=== PATIENT | female | born 1950 | race Caucasian/White ===

== ENCOUNTER 2020-09-03 07:07 | Day surgery (SDC) | payer MEDICARE, OTHER, SELFPAY ==
[2020-08-30 09:39] VITALS: BMI 18.6
--- NOTE | 2020-09-03 | PATH_ITS ---
[facility] Accession Number: [id number] . 01 Material submitted: . cervix - CERVICAL LEEP CONE BIOPSY . 01 Clinical history: . STITCH AT 12 O'CLOCK . 02 Diagnosis: Cervical LEEP Cone Biopsy: Detached fragments of atypical squamous mucosa in the 6-12 o'clock region, favor involvement by low grade squamous intraepithelial lesion / CATRACHITA-1. The specimen consists predominantly of fibromuscular tissue with an absent/eroded mucosal surface. Patchy atypical squamous and metaplastic squamous mucosa with tangential orientation Insufficient atypical tissue volume for further characterization. Extensive, obscuring electrocautery artifact present at margins. Changes consistent with previous instrumentation are present. No invasive tumor identified. Negative for p16 block immunostaining. [facility] 09/09/2020 1521 Local . 02 Comment: Additional levels through block A1 are non-contributory. . 02 Electronically signed: . Dominique Richard MD, Pathologist NPI- [id number] . 01 Gross description: . The specimen is received in formalin, labeled LEEP cone biopsy and consists of a 1.0 x 0.8 x 0.5 cm irregular portion of tnoey ectocervix with a suture designated 12 o'clock. The endocervical margin is inked blue. The ectocervical margin is inked black. The specimen is serially sectioned and entirely submitted. . A1: 12-6 o'clock. A2: 6-12 o'clock (specimen fragmented upon sectioning). ([id number]) /V 09/05/2020 0920 Local . 02 Microscopic: . An immunohistochemical stain for p16 is performed on block A2 to evaluate for block reactivity and is negative for block immunostaining. The control stained with appropriate reactivity. . The absence of p16 block immunostaining mitigates against the presence of high risk HPV DNA in this biopsy. . . * This test was developed and its performance characteristics determined by [facility]. It has not been cleared or approved by the U.S. Food and Drug Administration. The FDA has determined that such clearance or approval is not necessary. This test is used for clinical purposes. It should not be regarded as investigational or for research. . 02 Pathologist provided ICD-10: N87.0 . 02 CPT . 780756, [id number] Performed at: 01 [facility] Cytology [address] [id number] MD Thomas Lou MD Phone: [phone] Performed at: 02 [facility] [address] [place] [id number] MD Baylee Jones MD Phone: [phone]
[2020-09-03 07:44] LABS: COVID19 -Nasal RAPID Negative (Negative)
[2020-09-03 08:08] VITALS: BP 162/91; PULSE 78; RESP 16; TEMP 35.9; O2SAT 99; BMI 18.6
[2020-09-03 08:17] VITALS: BMI 18.6
[2020-09-03 08:19] VITALS: BMI 18.6
--- NOTE | 2020-09-03 08:26 | SUR.OPER ---
Lithotomy on padded OR bed, head on pillow, arms secured on padded arm boards at <90 degrees abduction. Legs secured in padded yellow fins stirrups.
--- NOTE | 2020-09-03 08:31 | PM.HP.1 ---
History of Present Illness History of Present Illness Date Patient Seen: 09/03/20 Time Patient Seen: 08:31 Chief complaint: SDC Narrative: Patient is a 69-year-old 2 para 2 with CATRACHITA 2 of the cervix. She presents for a LEEP cone biopsy of the cervix. Patient History Medical History (Updated 08/15/20 @ 20:40 by Barbara Domingo MD) Abnormal Pap smear of cervix Chicken pox (~1956) Human papilloma virus (~2011) Hyperthyroidism (~1973) Measles Osteoporosis Problem of right ear Vision disorder Surgical History (Updated 04/25/20 @ 08:49 by [employer]) Anesthesia History of colposcopy (~2011) History of thyroidectomy (~1974) Family & Social History Family History Father Diabetes mellitus Stroke TBI (traumatic brain injury) Mother Hypertension Hyperlipidemia Brother History of thyroid surgery Sister History of thyroid surgery Grandmother Dementia Social History: household members family Tobacco & Substance use: Smoking Status Never smoker alcohol intake never Substance Use Type does not use Meds Home Medications and Allergies Home Medications Medication Instructions Recorded Confirmed Type calcium carbonate-vitamin D3 PO 09/27/18 08/15/20 History levothyroxine 75 mcg tablet 75 mcg PO DAILY 09/27/18 09/03/20 History Allergies Allergy/AdvReac Type Severity Reaction Status Date / Time erythromycin base Allergy Diarrhea Verified 09/03/20 08:04 Exam Vital Signs (past 8 hours): - 09/03/20 08:08 Temperature 96.7 F L Pulse Rate 78 Respiratory Rate 16 Blood Pressure 162/91 H Pulse Oximetry 99 Oxygen Delivery Method Room Air Narrative Exam Narrative: HEENT: No thyromegaly, no anterior cervical or supraclavicular lymphadenopathy. Well-healed scar on the neck. Lungs:Clear to auscultation bilaterally, no wheezes. Cardiovascular: Regular rate and rhythm, no murmurs, rubs, or gallops. Abdomen: No scars. No hepatosplenomegaly. No masses palpable. External genitalia: Normal Vagina: Normal Cervix: Status post previous cone Bimanual exam: 5 Week size anteverted uterus. Mobile. Objective Labs Labs: Laboratory Results - last 24 hr 09/03/20 07:27 SARS-CoV-2 (PCR) Negative Assessment & Plan Assessment & Plan narrative: Assessment: 69-year-old 2 para 2 with CATRACHITA 2 of the cervix Plan: LEEP cone biopsy of the cervix The risks, benefits, and alternatives to the procedure were explained to the patient. The risks including bleeding and infection. She understands these risks and agrees to proceed. A full par Q was held and consent form was signed. COVID-19 COVID-19 status: Negative Result date/Date tested (Pos, Neg/Pending): 09/03/20 Time Spent With Patient Time with patient: less than 15 minutes
--- NOTE | 2020-09-03 08:34 | PM.PREOP ---
Pre-operative Note COVID-19 COVID-19 status: Negative Result date/Date tested (Pos, Neg/Pending): 09/03/20 Interval Note History & Physical reviewed/Exam performed by Physician: Yes Changes to H&P: No H&P completed within 30 days and has changed as indicated here:: 09/03/20
[2020-09-03] MEDS: POTASSIUM IODIDE/IODINE 473 ML SOLUTION TOP (09:04)
[2020-09-03] MEDS: FERRIC SUBSULFATE 8 GM SOLUTION 8 ML TOP (09:15)
--- NOTE | 2020-09-03 09:18 | PM.GYNOP.1 ---
Operative Date/Time/Diagnoses Date of procedure: 09/03/20 Time of procedure: 09:18 Pre-op diagnosis: CATRACHITA 2 of the cervix Post-op diagnosis: same Procedure & Clinicians Procedure: Procedures Operation Date: 09/03/20 08:45 Actual Procedures Side Surgeon p LEEP cone BX of cervix Barbara Domingo MD Indications: CATRACHITA 2 of the cervix Surgeon: Barbara Domingo Anesthesia Type: General (LMA) Operative Notes Findings: Lugol's light area surrounding the cervical os Closure Type: not applicable Specimen(s): other (Cone biopsy of the cervix with suture at 12:00 p.m.) Estimated blood loss (mL): 5 Blood products transfused: none Procedure in detail: After informed consent was obtained, the patient was taken to the operating room where she was placed in the dorsal supine position. After adequate LMA general anesthesia was achieved, she was placed in the dorsal lithotomy position, and prepped and draped in the usual sterile fashion. A time-out was performed. A plastic coated bivalve speculum was placed into the vagina. The cervix was small. A size plastic coated single-tooth tenaculum was placed on the anterior lip of the cervix. Lugol's was applied to the cervix. There was a Lugol's light area surrounding the endocervical os. Using the smallest loop, a LEEP cone biopsy of the cervix was performed. A 10. Blade was used to separate the cone biopsy on the patient's left side. The ball cautery was used for hemostasis. The settings for the LEEP were 60 cut and 40 cautery. Hemostasis was achieved. The specimen was tagged at the 12 o'clock position. The plastic coated single-tooth tenaculum was removed from the anterior lip of the cervix. The plastic coated bivalve speculum was removed from the vagina. There were 3 sources of suction during the procedure. Sponge, lap, and instrument counts were correct x2. The patient tolerated the procedure well, and was taken to PACU in stable condition. Complications: none Post-operative Condition: stable Disposition: PACU Plan for aftercare: Home after recovery
[2020-09-03 09:26] VITALS: BP 133/70; PULSE 75; RESP 16; TEMP 36.6; O2SAT 97
[2020-09-03 09:31] VITALS: BP 123/66; PULSE 76; RESP 20; O2SAT 96
[2020-09-03 09:36] VITALS: BP 120/70; PULSE 72; RESP 17; O2SAT 96
[2020-09-03] MEDS: OXYCODONE/ACETAMINOPHEN 5/325 TABLET 1 TAB PO (09:36)
[2020-09-03 09:41] VITALS: BP 129/75; PULSE 67; RESP 14; O2SAT 98
[2020-09-03 09:52] VITALS: BP 130/73; PULSE 65; RESP 15; TEMP 36.6; O2SAT 97
== END 2020-09-03 10:07 | disposition home or self-care (01) ==
PROVIDERS: PCP Internal Medicine; Referring Provider Obstetrics & Gynecology; Visit Provider Obstetrics & Gynecology
PROC: 0UBC7ZZ Excision of Cervix, Via Natural or Artificial Opening (ICD-10-PCS; CPT 57522; principal; 2020-09-03 08:45)
DX: N87.0 Mild cervical dysplasia (principal); E05.90 Thyrotoxicosis, unspecified without thyrotoxic crisis or storm; Z20.822 Contact with and (suspected) exposure to COVID-19
CPT/HCPCS: 57522; 87635; A9270; J2405; J2704; J3010